=== PATIENT | female | born 2005 | race Caucasian/White ===

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

== ENCOUNTER → 2025-01-17 | Outpatient (REF) | payer OTHER | LOC: M LABDRWAD 12:48 | PROVIDERS: ATTEND Pediatrics | DX: Z13.0 Encounter for screening for diseases of the blood and blood-forming organs and certain disorders involving the immune mechanism (principal) ==